=== PATIENT | male | born 1995 | race Hispanic/Latino ===

== ENCOUNTER 2017-02-11 19:09 | Emergency (ER) | payer OTHER ==
[~2017-02-11] VITALS: Ht 167.6 cm; Wt 65.5 kg
[2017-02-11 19:57] LABS: HEMATOCRIT 42.3 % (38.0-50.0); MCH 30.7 PG (29.0-34.0); MCHC 35.5 G/DL (30.0-36.0); MCV 86.5 FL (86-99); MEAN PLAT.VOLUME 10.1 uM^3 (9.0-12.4); PLATELET COUNT 271 K/uL (156-360); RBC DIS.WIDTH-CV 11.8 % (11.8-14.6); RBC DIS.WIDTH-SD 37.2 % (39-53); RED BLOOD COUNT 4.89 M/uL (4.00-5.50); WHITE BLOOD COUNT 11.3 K/uL (4.1-10.2)
[2017-02-11 20:06] LABS: CHLORIDE 108 mEq/L (99-109); POTASSIUM 3.2 mEq/L (3.7-5.4); SODIUM 138 mEq/L (136-147)
[2017-02-11 20:07] LABS: GLUCOSE 116 mg/dL (70-99)
[2017-02-11 20:09] LABS: ANION GAP 13 MEQ/L (2-14)
[2017-02-11 20:12] LABS: UREA NITROGEN (BUN) 20 mg/dL (9-23)
[2017-02-11 20:21] LABS: GFR ESTIMATE (CALCULATED) > 59 mL/min/ (58.99-99999)
[2017-02-11 20:54] LABS: TOTAL BILIRUBIN 1.5 mg/dL (0.0-1.0)
[2017-02-11 20:55] LABS: ALKALINE PHOSPHATASE 68 IU/L (3-129)
[2017-02-11 20:57] LABS: DIRECT BILIRUBIN 0.5 mg/dL (0.0-0.3)
[2017-02-11 20:58] LABS: LIPASE 31 U/L (1.0-51.0)
[2017-02-11 21:17] LABS: ADD MIUA? NO; BILIRUBIN NEGATIVE; BLOOD NEGATIVE; COLOR STRAW ((YELLOW)); GLUCOSE (STRIP) NEGATIVE; KETONES NEGATIVE; LEUKOCYTES NEGATIVE; NITRITE NEGATIVE; PROTEIN (STRIP) NEGATIVE; SPECIFIC GRAVITY 1.004 (1.000-1.030); UCUL ADDED? NO; UROBILINOGEN 0.2 MG/DL (0.2-1.0)
[2017-02-11] MEDS ORDERED: ZOFRAN ODT4 MG PO (21:22)
[2017-02-11] MEDS ORDERED: K-DUR20 MEQ PO (21:23)
[2017-02-11 21:38] VITALS: BP 107/75
== END 2017-02-11 21:40 | disposition home or self-care (01) ==
LOC: EME 19:09
DX: R11.2 Nausea with vomiting, unspecified (principal); E86.0 Dehydration; F84.0 Autistic disorder
CPT/HCPCS: 80048; 80076; 81003; 83690; 85027; 99281; 99284